=== PATIENT | male | born 1955 | race Caucasian/White ===

== ENCOUNTER 2022-02-27 23:55 | Emergency (ER) | payer MEDICARE, SELFPAY ==
--- NOTE | ~2022-02-27 | XR_ITS ---
EXAMINATION: XR CHEST CLINICAL INFORMATION: Shortness of breath COMPARISON: 11/25/2017 TECHNIQUE: Frontal view of the chest was obtained. FINDINGS: The lungs are hypoinflated with slight elevation of the right hemidiaphragm. No focal consolidation is seen bilaterally. No evidence of pneumothorax, pleural effusion, or pulmonary edema. The cardiomediastinal contour is unremarkable. Chronic appearing left rib deformities noted. XR/XR chest 1V IMPRESSION: Low lung volumes without acute findings.
--- NOTE | ~2022-02-27 | CT_ITS ---
EXAMINATION: CT HEAD WITHOUT CONTRAST CLINICAL INFORMATION: Fall COMPARISON: 11/25/2017 TECHNIQUE: Contiguous axial imaging was performed from the skull base to vertex without intravenous administration of contrast. This CT examination was performed using dose optimization techniques as appropriate, variously including the following: *Automated exposure control *Adjustment of mA and/or kV according to patient size (this includes techniques or standardized protocols for targeted exams where dose is matched to indication/reason for exam; i.e. extremities or head) *Use of iterative reconstruction technique DLP: 918 mGy-cm FINDINGS: There is no evidence of acute intracranial hemorrhage or territorial infarction. No abnormal mass-effect or midline shift is seen. Daugherty to white matter differentiation is well preserved. No extra-axial fluid collections are identified. The ventricles are normal in size. There is mild periventricular white matter hypoattenuation consistent with chronic small vessel ischemic disease. Mild volume loss is noted. 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 The osseous structures and soft tissues are normal. There is mucosal thickening of the ethmoid air cells and bilateral maxillary sinuses. The mastoid air cells are well-aerated. CT/CT head/brain wo IV con IMPRESSION: No acute intracranial pathology. Chronic appearing changes as noted above.
[2022-02-28] VITALS (8 sets, daily range): BP systolic 102–180; BP diastolic 52–124; PULSE 76–110; RESP 15–20; TEMP 36.5–37.2; O2SAT 90–98; BMI 33.9
--- NOTE | 2022-02-28 | ECG_ITS ---
Test Reason : PAST OUT Blood Pressure : / mmHG Vent. Rate : 084 BPM Atrial Rate : 084 BPM P-R Int : 178 ms QRS Dur : 114 ms QT Int : 384 ms P-R-T Axes : 041 -03 116 degrees QTc Int : 453 ms Sinus rhythm with frequent , and consecutive Premature ventricular complexes ST & T wave abnormality, consider lateral ischemia Abnormal ECG When compared with ECG of 25-NOV-2017 20:40, Premature ventricular complexes are now Present Heart rate has increased Referred By: Generic ED Physician Electronically Signed By:SIMI MACIEL MD
[2022-02-28 00:40] LABS: MANUAL DIFF FLAG NO
[2022-02-28 00:41] LABS: Hematocrit 46.9 % (42.0-52.0); Mean Corpuscular Hemoglobin 30.3 pg (27.0-33.0); Mean Corpuscular Volume 94.7 fL (80.0-98.0); Red Blood Count 4.95 X10*6/uL (4.60-5.80); Red Cell Distribution Width 13.5 % (11.0-16.0); White Blood Count 10.1 X10*3/uL (4.8-10.8)
[2022-02-28 00:54] LABS: Basophils Absolute Auto 0.1 X10*3/uL (0.0-0.2); Basophils Percent Auto 0.7 % (0-2); Eosinophils Absolute Auto 0.4 X10*3/uL (0.0-0.4); Imm Gran Abs Auto 0.06 X10*3/uL (0.00-0.03); Imm Gran Pct Auto 0.6 % (0.0-0.4); Lymphocytes Absolute Auto 2.9 X10*3/uL (1.2-4.9); Lymphocytes Percent Auto 28.8 % (20-40); Monocytes Absolute Auto 1.2 X10*3/uL (0.1-1.2); Monocytes Percent Auto 11.6 % (2-11); Neutrophils Absolute Auto 5.5 x10*3/uL (2.0-8.3); Neutrophils Percent Auto 54.3 % (45-73); Platelet Count 265 X10*3/uL (160-400)
[2022-02-28 01:01] LABS: Alanine Aminotransferase 38 U/L (0-40); Albumin Level 4.1 g/dL (3.5-5.0); Alkaline Phosphatase 68 U/L (39-117); Anion Gap 19 (12-20); Aspartate Amino Transferase 22 U/L (5-37); Bilirubin Total 0.4 mg/dL (0.0-1.0); Blood Urea Nitrogen 20 mg/dL (9-16); Carbon Dioxide 24 mmol/L (22-29); Chloride 99 mmol/L (96-108); Creatinine Clr Calc Pharmacy 64.2; Estimated Glomerular Filt Rate 50; Glucose Random 176 mg/dL (60-115); Sodium 138 mmol/L (135-145); Total Protein 7.6 g/dL (6.5-8.0)
[2022-02-28 01:07] LABS: Troponin-I High Sensitivity 12.5 ng/L (<3.5-35.0)
--- NOTE | 2022-02-28 01:11 | ED_ITS ---
HPI - General Adult General Chief complaint: Syncope Stated complaint: ETOH,DRUG USE, SYNCOPE Time Seen by Provider: 02/28/22 00:41 Source: patient Mode of arrival: EMS History of Present Illness HPI narrative: 67-year-old male who is brought in by EMS from a local bar after he ?passed out?. Patient states that he had 7-8 bud Lights and 4 shots as well as smoking marijuana. He otherwise denies any other heroin/cocaine use. Related Data Allergies Allergy/AdvReac Type Severity Reaction Status Date / Time No Known Allergies Allergy Unverified 01/11/20 15:05 [No Known Allergies*] Review of Systems Review of Systems: Pertinent positives and negatives as stated in HPI 10 point review of systems is otherwise negative. PMFSH Past Medical History Source: nursing notes reviewed Physical Exam ED Vital Signs: Vital Signs - 24 hr 02/28/22 00:28 Temperature 98.0 F Pulse Rate 84 Respiratory Rate 16 Blood Pressure 102/52 L Pulse Oximetry 91 L Oxygen Delivery Method Nasal Cannula Oxygen Flow Rate 2 BMI result Body Mass Index 33.9 VITAL SIGNS: Reviewed. GENERAL: Elevated BMI, Well developed, well nourished, in no acute distress. HEAD: Normocephalic/atraumatic EYES: PERRLA, EOMI EARS: Ext canals without abnormality OROPHARYNX: no oral lesions noted, posterior pharynx clear LUNGS: Normal breath sounds. No adventitious sounds or accessory muscle use. SpO2<95> on 2 L of nasal cannula CARDIOVASCULAR: Regular rate and rhythm without noted murmurs, no JVD or lower extremity edema. ABDOMEN: Soft, non-tender, non-distended with bowel sounds. MUSCULOSKELETAL: No tenderness, deformities, or effusions noted on gross inspection. EXTREMITIES: No cyanosis, clubbing or edema. SKIN: Inspection of the skin reveals no rashes NEUROLOGIC: Drowsy but easily aroused and oriented x 3. Strength and sensation to light touch were grossly intact x 4. Course Course Course Narrative: 67-year-old male with polysubstance use and appears to be under the influence, lives at home by himself. Will obtain basic labs provide supplemental oxygen at this time for level of drowsiness and observe until clinically sober. Review of all investigations demonstrates an ARIANNE and in the presence of mild hyperkalemia suspect this may be chronic at baseline but will give 1 L of IV fluids. Signed out to Dr Rios - f/u BNP,CXR, BAL - MTF Reevaluation(s) Reevaluation #1: Patient placed in physician observation because the patient needed more time to become sober. At the time observation was started the patient's vital signs were stable, patient is drowsy but easily aroused and oriented, neuro: Nonfocal, CV RRR, lungs clear Time: 01:16 Medical Decision Making Lab Data Result diagrams: 02/28/22 00:36 02/28/22 00:36 Labs: Lab Results 02/28/22 02/28/22 02/28/22 Range/Units 00:36 00:36 00:36 WBC 10.1 (4.8-10.8) X10*3/uL RBC 4.95 (4.60-5.80) X10*6/uL Hgb 15.0 (14.0-18.0) g/dl Hct 46.9 (42.0-52.0) % MCV 94.7 (80.0-98.0) fL MCH 30.3 (27.0-33.0) pg MCHC 32.0 (31.0-36.0) g/dl RDW 13.5 (11.0-16.0) % Plt Count 265 (160-400) X10*3/uL MPV 11.0 (9.4-12.4) fL Immature Gran % (Auto) 0.6 H (0.0-0.4) % Neut % (Auto) 54.3 (45-73) % Lymph % (Auto) 28.8 (20-40) % [place] % (Auto) 11.6 H (2-11) % Eos % (Auto) 4.0 (0-4) % Baso % (Auto) 0.7 (0-2) % Lymph # (Auto) 2.9 (1.2-4.9) X10*3/uL [place] # (Auto) 1.2 (0.1-1.2) X10*3/uL Eos # (Auto) 0.4 (0.0-0.4) X10*3/uL Baso # (Auto) 0.1 (0.0-0.2) X10*3/uL Abs Immat Gran (auto) 0.06 H (0.00-0.03) X10*3/uL Absolute Neuts (auto) 5.5 (2.0-8.3) x10*3/uL Absolute Nucleated RBC 0.000 (0.0-0.012) X10*3/uL Nucleated RBC % (auto) 0.0 (0.0-0.2) /100WBC Sodium 138 (135-145) mmol/L Potassium 4.0 (3.3-5.1) mmol/L Chloride 99 (96-108) mmol/L Carbon Dioxide 24 (22-29) mmol/L Anion Gap 19 (12-20) BUN 20 H (9-16) mg/dL Creatinine 1.41 H (0.5-1.4) mg/dL Estim Creat Clear Calc 64.2 Estimated GFR 50 Random Glucose 176 H (60-115) mg/dL Calcium 9.0 (8.4-10.2) mg/dL Total Bilirubin 0.4 (0.0-1.0) mg/dL AST 22 (5-37) U/L ALT 38 (0-40) U/L Alkaline Phosphatase 68 (39-117) U/L Troponin I High Sens 12.5 (<3.5-35.0) ng/L Total Protein 7.6 (6.5-8.0) g/dL Albumin 4.1 (3.5-5.0) g/dL Discharge Plan Discharge Clinical Impression: Alcohol intoxication, Fall, Marijuana use Patient Disposition: Still a Patient
[2022-02-28] MEDS: 0.9 % Sodium Chloride 1,000 ML 999 ML IV (01:44)
[2022-02-28 01:47] LABS: Ethanol 109 mg/dL
[2022-02-28 01:55] LABS: B Type Natriuretic Peptide 20 pg/mL (<100)
--- NOTE | 2022-02-28 11:50 | PC.NURSE ---
Liza aware of patients BP
== END 2022-02-28 12:13 | disposition home or self-care (01) ==
PROVIDERS: Emergency Provider Student in an Organized Health Care Education/Training Program; PCP Family Medicine
DX: F10.920 Alcohol use, unspecified with intoxication, uncomplicated (principal); Y90.5 Blood alcohol level of 100-119 mg/100 ml; F12.90 Cannabis use, unspecified, uncomplicated; Z91.81 History of falling
CPT/HCPCS: 36415; 70450; 71045; 80053; 82077; 83880; 84484; 85025; 93005; 96360; 96361; 99284; 99285

== ENCOUNTER 2024-01-24 11:39 | Emergency (ER) | payer MEDICARE, SELFPAY ==
--- NOTE | ~2024-01-24 | CT_ITS ---
EXAMINATION: CT HEAD WITHOUT CONTRAST CLINICAL INFORMATION: Dizziness. Surgical. COMPARISON: February 28, 2022 TECHNIQUE: Contiguous axial imaging was performed from the skull base to vertex without intravenous administration of contrast. This CT examination was performed using dose optimization techniques as appropriate, variously including the following: *Automated exposure control *Adjustment of mA and/or kV according to patient size (this includes techniques or standardized protocols for targeted exams where dose is matched to indication/reason for exam; i.e. extremities or head) *Use of iterative reconstruction technique DLP: 834 mGy-cm FINDINGS: There is no evidence of acute intracranial hemorrhage or edematous territorial infarction. No mass effect or midline shift is seen. No extra-axial fluid collections are identified. No hydrocephalus. Proportional prominence of the ventricles and sulcal spaces is consistent with moderate volume loss. Confluent periventricular and deep white matter hypoattenuation is consistent with severe small vessel ischemic changes. The osseous structures and soft tissues are intact. Mucoperiosteal thickening of the ethmoid air cells. CT/CT head/brain wo IV con IMPRESSION: Advanced chronic small vessel ischemic disease. If clinical concern persists given the degree of underlying chronic changes, MRI should be considered for more sensitive evaluation. Electronically signed by: Gustavo Sun MD 01/24/2024 01:05 PM EDT
[2024-01-24 12:17] VITALS: BP 146/84; PULSE 80; RESP 16; TEMP 36.5; O2SAT 95; BMI 36.0
--- NOTE | 2024-01-24 12:17 | ED_ITS ---
HPI - General Adult General Chief complaint: Neuro Symptoms/Deficit Stated complaint: diabetic, Sugar low Time Seen by Provider: 01/24/24 20:05 Source: patient Mode of arrival: ambulatory Limitations: no limitations History of Present Illness ED Provider: carlos NICOLE narrative: Patient is diabetic been complaining of dizziness feeling for last 4 days started all of a sudden feels everything spinning associated with nausea no ringing in the ear no tremors no other weakness patient never had similar complaints in the past no upper respiratory symptoms no tinnitus Related Data Previous Rx's ?Medication ?Instructions ?Recorded meclizine 25 mg tablet 25 mg PO TID PRN dizziness #20 tabs 01/24/24 Allergies Allergy/AdvReac Type Severity Reaction Status Date / Time No Known Allergies Allergy Verified 01/24/24 12:18 [No Known Allergies*] Review of Systems 2 Review of Systems: Yes all other systems are reviewed and are negative [facility] Social History Social History Alcohol intake: former Smoked in Last 30 Days: No Use of substances other than those prescribed or required for medical reasons: No Substance Use Type: Marijuana Advance Directives: No Advance Directives Information Provided: No Physical Exam ED Vital Signs: Vital Signs - 24 hr 01/24/24 12:17 01/24/24 19:54 01/24/24 21:08 Temperature 97.7 F 98.0 F 98.0 F Pulse Rate 80 86 86 Respiratory Rate 16 22 H 22 H Blood Pressure 146/84 H 165/90 H 165/90 H Pulse Oximetry 95 95 95 Oxygen Delivery Method Room Air Room Air Room Air BMI result Body Mass Index 36.0 Appearance: Alert. Oriented X3. No acute distress. Eyes: PERRLA, No Nystagmus ENT: Pharynx normal. Oral Mucosa moist Neck: Normal inspection. Neck supple. CVS: Normal heart rate and rhythm. Pulses normal. Respiratory: No respiratory distress. Equal air entry bilateral, no wheezing/rales/rhonchi Abdomen: Soft and nontender. Bowel sounds are present, no mass palpable, no CVA tenderness Skin: Skin warm and dry. Normal skin color. Normal skin turgor. Extremities: No lower extremity edema. No calf tenderness Neuro: Oriented X 3. No motor deficit. No sensory deficit.No cerebellar signs , cranial nerves II-XII intact Course Course Course Narrative: josie MELGOZA is a rapid medical exam performed by Ilan Fry please refer to primary provider for complete H&P- 69 year old male with past medical history significant for diabetes, hypertension presents for evaluation of multiple complaints including increased weakness, slurred speech, difficulty walking for the last 4 days. The patient has no focal neurologic deficits in triage. Plan for basic labs, EKG, CT scan of the brain. Medications Administered Discontinued Medications Generic Name Dose Route Start Last Admin Trade Name Rodrigo PRN Reason Stop Dose Admin Meclizine HCl 50 mg 01/24/24 20:26 01/24/24 21:05 Meclizine Hcl 25 Mg Tablet PO 01/24/24 20:27 50 mg ONCE ONE Administration Medical Decision Making Medical Decision Making [facility] Narrative: Patient clinically with benign positional vertigo with sudden onset of vertiginous feeling with nausea no signs of central nervous system involvement ambulatory in steady gait no nystagmus no cerebellar signs CT scan of the head was negative for acute patient felt better after meclizine will discharge patient home on meclizine advised to follow with his PCP Differential Diagnosis Differential Diagnoses: The differential diagnosis associated with the presentation includes CVA/TIA/benign positional vertigo Lab Data [facility] Lab Attestation statement: I reviewed the patient's lab results. 01/24/24 12:29 01/24/24 12:29 Labs: Lab Results 01/24/24 01/24/24 01/24/24 Range/Units 12:10 12:29 20:39 WBC 10.5 (4.8-10.8) X10*3/uL RBC 4.73 (4.60-5.80) X10*6/uL Hgb 14.5 (14.0-18.0) g/dl Hct 42.9 (42.0-52.0) % MCV 90.7 (80.0-98.0) fL MCH 30.7 (27.0-33.0) pg MCHC 33.8 (31.0-36.0) g/dl RDW 13.1 (11.0-16.0) % Plt Count 262 (160-400) X10*3/uL MPV 10.5 (9.4-12.4) fL Immature Gran % (Auto) 0.4 (0.0-0.4) % Neut % (Auto) 62.0 (45-73) % Lymph % (Auto) 22.7 (20-40) % [place] % (Auto) 11.2 H (2-11) % Eos % (Auto) 3.1 (0-4) % Baso % (Auto) 0.6 (0-2) % Lymph # (Auto) 2.4 (1.2-4.9) X10*3/uL [place] # (Auto) 1.2 (0.1-1.2) X10*3/uL Eos # (Auto) 0.3 (0.0-0.4) X10*3/uL Baso # (Auto) 0.1 (0.0-0.2) X10*3/uL Abs Immat Gran (auto) 0.04 H (0.00-0.03) X10*3/uL Absolute Neuts (auto) 6.5 (2.0-8.3) x10*3/uL Absolute Nucleated RBC 0.000 (0.0-0.012) X10*3/uL Nucleated RBC % (auto) 0.0 (0.0-0.2) /100WBC PT 11.1 (10.9-12.4) SEC INR 1.0 (0.9-1.1) Sodium 141 (135-145) mmol/L Potassium 4.1 (3.3-5.1) mmol/L Chloride 106 (96-108) mmol/L Carbon Dioxide 26 (22-29) mmol/L Anion Gap 13 (12-20) BUN 21 H (9-16) mg/dL Creatinine 1.16 (0.5-1.4) mg/dL Estim Creat Clear Calc 76.0 Estimated GFR > 60 POC Glucose 159 H 106 (60-115) mg/dL Random Glucose 184 H (60-115) mg/dL Calcium 9.5 (8.4-10.2) mg/dL Total Bilirubin 0.5 (0.0-1.0) mg/dL AST 19 (5-37) U/L ALT 29 (0-40) U/L Alkaline Phosphatase 73 (39-117) U/L Troponin I High Sens 8.8 (<3.5-35.0) ng/L B-Natriuretic Peptide 44 (<100) pg/mL Total Protein 7.6 (6.5-8.0) g/dL Albumin 3.9 (3.5-5.0) g/dL Lipase 12 (8-78) U/L Ethyl Alcohol < 10 mg/dL Independent Interpretation I performed an independent interpretation of an: CT Scan Radiology Impression Discussion of test interpretation with radiology: I have reviewed the radiologist's reading. Radiologist Impression: CT/CT head/brain wo IV con IMPRESSION: Advanced chronic small vessel ischemic disease. If clinical concern persists given the degree of underlying chronic changes, MRI should be considered for more sensitive evaluation. Electronically signed by: Gustavo Sun MD Discharge Plan Discharge Clinical Impression: Benign paroxysmal positional vertigo Patient Disposition: Home, Self-Care Instructions: Benign Paroxysmal Positional Vertigo (ED) Additional Instructions: Care and cautions as advised Take medication for dizziness as prescribed Follow with your PCP if not better Your CT scan is negative for stroke Prescriptions: New meclizine 25 mg tablet 25 mg PO TID PRN (Reason: dizziness) Qty: 20 0RF Interventions: ED Discharge Assessment Last Done: 01/24/24 21:08 Discharge Date/Time: 01/24/24 21:08 Print Language: Hebrew
--- NOTE | 2024-01-24 12:18 | ECG_ITS ---
Test Reason : WEAKNESS Blood Pressure : / mmHG Vent. Rate : 077 BPM Atrial Rate : 077 BPM P-R Int : 166 ms QRS Dur : 118 ms QT Int : 404 ms P-R-T Axes : 001 -08 101 degrees QTc Int : 457 ms Normal sinus rhythm Non-specific intra-ventricular conduction delay Nonspecific ST and T wave abnormality Abnormal ECG When compared with ECG of 28-FEB-2022 00:18, Premature ventricular complexes are no longer Present Nonspecific T wave abnormality has replaced inverted T waves in Lateral leads Referred By: Mitch Fry Electronically Signed By:RADHA DAVENPORT
[2024-01-24 12:34] LABS: MANUAL DIFF FLAG NO
[2024-01-24 12:37] LABS: Basophils Absolute Auto 0.1 X10*3/uL (0.0-0.2); Basophils Percent Auto 0.6 % (0-2); Eosinophils Absolute Auto 0.3 X10*3/uL (0.0-0.4); Eosinophils Percent Auto 3.1 % (0-4); Hematocrit 42.9 % (42.0-52.0); Hemoglobin 14.5 g/dl (14.0-18.0); Imm Gran Abs Auto 0.04 X10*3/uL (0.00-0.03); Imm Gran Pct Auto 0.4 % (0.0-0.4); Lymphocytes Absolute Auto 2.4 X10*3/uL (1.2-4.9); Lymphocytes Percent Auto 22.7 % (20-40); Mean Corpuscular HGB Conc 33.8 g/dl (31.0-36.0); Mean Corpuscular Hemoglobin 30.7 pg (27.0-33.0); Mean Corpuscular Volume 90.7 fL (80.0-98.0); Mean Platelet Volume 10.5 fL (9.4-12.4); Monocytes Absolute Auto 1.2 X10*3/uL (0.1-1.2); Monocytes Percent Auto 11.2 % (2-11); Neutrophils Absolute Auto 6.5 x10*3/uL (2.0-8.3); Platelet Count 262 X10*3/uL (160-400); Red Blood Count 4.73 X10*6/uL (4.60-5.80); Red Cell Distribution Width 13.1 % (11.0-16.0); White Blood Count 10.5 X10*3/uL (4.8-10.8)
[2024-01-24 12:45] LABS: Glucose, Whole Blood 159 mg/dL (60-115)
[2024-01-24 12:45] LABS: Prothrombin Time 11.1 SEC (10.9-12.4)
[2024-01-24 12:51] LABS: Alanine Aminotransferase 29 U/L (0-40); Albumin Level 3.9 g/dL (3.5-5.0); Alkaline Phosphatase 73 U/L (39-117); Anion Gap 13 (12-20); Aspartate Amino Transferase 19 U/L (5-37); Bilirubin Total 0.5 mg/dL (0.0-1.0); Blood Urea Nitrogen 21 mg/dL (9-16); Calcium 9.5 mg/dL (8.4-10.2); Carbon Dioxide 26 mmol/L (22-29); Chloride 106 mmol/L (96-108); Estimated Glomerular Filt Rate > 60; Ethanol < 10 mg/dL; Glucose Random 184 mg/dL (60-115); Lipase 12 U/L (8-78); Potassium 4.1 mmol/L (3.3-5.1); Sodium 141 mmol/L (135-145); Total Protein 7.6 g/dL (6.5-8.0)
[2024-01-24 12:56] LABS: B Type Natriuretic Peptide 44 pg/mL (<100)
[2024-01-24 12:57] LABS: Troponin-I High Sensitivity 8.8 ng/L (<3.5-35.0)
[2024-01-24 19:54] VITALS: BP 165/90; PULSE 86; RESP 22; TEMP 36.7; O2SAT 95
[2024-01-24] MEDS: Meclizine HCl 25 MG TABLET 50 MG PO (21:05)
[2024-01-24 21:08] VITALS: BP 165/90; PULSE 86; RESP 22; TEMP 36.7; O2SAT 95
[2024-01-24 21:15] LABS: Glucose, Whole Blood 106 mg/dL (60-115)
== END 2024-01-24 21:08 | disposition home or self-care (01) ==
PROVIDERS: Physician Assistant; Emergency Provider Internal Medicine; PCP Family Medicine
DX: H81.10 Benign paroxysmal vertigo, unspecified ear (principal); R53.1 Weakness; R47.81 Slurred speech; R26.2 Difficulty in walking, not elsewhere classified; E11.9 Type 2 diabetes mellitus without complications; I10 Essential (primary) hypertension; I67.82 Cerebral ischemia; F12.90 Cannabis use, unspecified, uncomplicated
CPT/HCPCS: 36415; 70450; 80053; 80307; 82947; 83690; 83880; 84484; 85025; 85610; 93005; 99284; 99285

== ENCOUNTER 2024-03-22 22:20 | Inpatient (IN) | payer MEDICARE, SELFPAY ==
--- NOTE | 2024-03-22 | ECG_ITS ---
Test Reason : FALL Blood Pressure : / mmHG Vent. Rate : 105 BPM Atrial Rate : 105 BPM P-R Int : 166 ms QRS Dur : 096 ms QT Int : 368 ms P-R-T Axes : 074 000 075 degrees QTc Int : 486 ms Sinus tachycardia Nonspecific ST abnormality Abnormal ECG When compared with ECG of 24-JAN-2024 12:15, T wave amplitude has increased in Inferior leads Nonspecific T wave abnormality, improved in Anterolateral leads Referred By: Gerald Ashley Electronically Signed By:APURVA ELAINE
--- NOTE | ~2024-03-22 | XR_ITS ---
EXAMINATION: XR CHEST CLINICAL INFORMATION: weakness COMPARISON: 02/28/2022 TECHNIQUE: Frontal view of the chest was obtained. FINDINGS: There is been no interval change since the prior study. Again seen is a mildly elevated right hemidiaphragm and healing fractures of left-sided posterior ribs. No acute infiltrates, pleural effusions or suspicious lung masses are seen. XR/XR chest 1V IMPRESSION: No acute intrathoracic disease. Healing left-sided rib fractures. Electronically signed by: Dexter Ibrahim MD 03/23/2024 12:24 AM JANELLE LIN
[2024-03-22 22:21] VITALS: BP 120/67; PULSE 110; O2SAT 95
[2024-03-22 22:27] VITALS: BP 132/76; PULSE 104; RESP 22; TEMP 36.7; O2SAT 93; BMI 34.9
[2024-03-22 22:43] LABS: Glucose, Whole Blood 154 mg/dL (60-115)
[2024-03-22] MEDS: 0.9 % Sodium Chloride 1,000 ML 999 ML IV (22:47)
[2024-03-22 23:05] LABS: Basophils Absolute Auto 0.1 X10*3/uL (0.0-0.2); Basophils Percent Auto 0.4 % (0-2); Eosinophils Percent Auto 0.2 % (0-4); Hematocrit 45.9 % (42.0-52.0); Hemoglobin 15.7 g/dl (14.0-18.0); Imm Gran Pct Auto 0.5 % (0.0-0.4); Lymphocytes Absolute Auto 2.3 X10*3/uL (1.2-4.9); Lymphocytes Percent Auto 11.6 % (20-40); Mean Corpuscular HGB Conc 34.2 g/dl (31.0-36.0); Mean Corpuscular Hemoglobin 30.4 pg (27.0-33.0); Mean Platelet Volume 10.9 fL (9.4-12.4); Monocytes Percent Auto 10.2 % (2-11); Neutrophils Absolute Auto 15.3 x10*3/uL (2.0-8.3); Neutrophils Percent Auto 77.1 % (45-73); Platelet Count 304 X10*3/uL (160-400); Red Blood Count 5.16 X10*6/uL (4.60-5.80); Red Cell Distribution Width 13.2 % (11.0-16.0); SCAN SMEAR FLAG 1; White Blood Count 19.7 X10*3/uL (4.8-10.8)
[2024-03-22 23:10] LABS: MANUAL DIFF FLAG SCAN; Prothrombin Time 12.1 SEC (10.9-12.4)
--- NOTE | 2024-03-22 23:10 | MHC.EDTECH ---
Patient BIBA,changed into hospital attire,vitals taken,continuous rectal probe placed,temp is 98.6, pt tolerated well,EKG taken per order and signed by provider ,1st set of blood cultures,labs,and Sars obtained and sent to lab,will hold on the 2nd set at this time,pt is cold and a difficult stick,multiple staff attempted provider and RN aware. Patient has multiple abrasions to both knees,rt foot and left elbow, warm blankets applied to pt,call dickson in reach
--- NOTE | 2024-03-22 23:14 | PC.NURSE ---
pt biba from home, a&ox3, respirations even and unlabored. pt reports leaving his house to go get batterys when he fell down outside. pt reports he had been outside for 1 hour when his neighbor found him. pt reports he attempted to get up on his own but was unable. pt denies pain at this time. ems reports pt had temp scan of 90.1. on arrival, pt rectal, 98. pt denies pain at this time. c collar removed by provider. 22G placed in left hand, 20G placed in left ac by ems.per provider okay to hold on second set of cultures at this time. iv fluids administered at this time.
[2024-03-22 23:20] VITALS: BP 100/65; PULSE 100; RESP 16; TEMP 36.9; O2SAT 95
[2024-03-22 23:21] LABS: Alanine Aminotransferase 50 U/L (0-40); Albumin Level 4.1 g/dL (3.5-5.0); Alkaline Phosphatase 76 U/L (39-117); Anion Gap 23 (12-20); Aspartate Amino Transferase 66 U/L (5-37); Bilirubin Total 0.8 mg/dL (0.0-1.0); Blood Urea Nitrogen 47 mg/dL (9-16); Calcium 9.7 mg/dL (8.4-10.2); Carbon Dioxide 22 mmol/L (22-29); Chloride 101 mmol/L (96-108); Creatinine Clr Calc Pharmacy 41.7; Estimated Glomerular Filt Rate 32; Glucose Random 177 mg/dL (60-115); Magnesium 1.8 mg/dL (1.6-2.6); Potassium 4.7 mmol/L (3.3-5.1); Sodium 141 mmol/L (135-145); Total Protein 7.8 g/dL (6.5-8.0)
--- NOTE | 2024-03-22 23:21 | PC.NURSE ---
pt noted to have skin tares to bilateral elbows and knees, all of them cleaned and covered at this time.
[2024-03-22 23:23] LABS: Lactic Acid 3.8 mmol/L (0.5-2.0)
[2024-03-22 23:26] LABS: SLIDE REVIEW VERIFIED
--- NOTE | 2024-03-22 23:26 | ED.GENADULT ---
HPI - General Adult General Chief complaint: Fall Stated complaint: core temp 90.7, fall outside, found 1hr later Time Seen by Provider: 03/22/24 22:31 Source: patient and EMS Mode of arrival: EMS Limitations: no limitations History of Present Illness ED Provider: carlos NICOLE narrative: Patient is 69 years old lives alone apparently was feeling weak for last few days not eating much having loose bowels for last 3- 4 days patient did not eat much and did not take his insulin for 3 -4 days . Today patient went out to get the batteries for his remote ,when came home felt very weak when get came out of the car slumped down to the driveway and laid there for about an hour till neighbor came and called the ambulance patient has tried to get a but was feeling very weak has multiple abrasions on bilateral knees and left elbow no head injury no neck patient denied any fever or chills no urinary symptoms no abdominal pain no nausea no vomiting no chest pain no shortness of breath Related Data Previous Rx's ?Medication ?Instructions ?Recorded meclizine 25 mg tablet 25 mg PO TID PRN dizziness #20 tabs 01/24/24 Allergies Allergy/AdvReac Type Severity Reaction Status Date / Time No Known Allergies Allergy Verified 03/22/24 22:31 [No Known Allergies*] Review of Systems Review of Systems: Yes all other systems are reviewed and are negative [facility] Past Medical History Medical History (Updated 03/23/24 @ 00:21 by Gerald Ashley MD) Diabetes mellitus Social History Social History Alcohol intake: former Smoked in Last 30 Days: No Use of substances other than those prescribed or required for medical reasons: No Substance Use Type: Marijuana Advance Directives: No Advance Directives Information Provided: Yes Physical Exam ED Vital Signs: Vital Signs - 24 hr 03/22/24 22:27 03/22/24 23:20 03/23/24 00:03 Temperature 98.0 F 98.4 F 98.6 F Pulse Rate 104 H 100 97 Respiratory Rate 22 H 16 16 Blood Pressure 132/76 100/65 121/69 Pulse Oximetry 93 95 96 Oxygen Delivery Method Room Air Room Air Room Air 03/23/24 00:09 Temperature 98.6 F Pulse Rate 102 H Respiratory Rate 20 Blood Pressure 120/65 Pulse Oximetry 95 Oxygen Delivery Method Room Air BMI result Body Mass Index 34.9 Appearance: Alert. Oriented X3. No acute distress. Eyes: PERRLA, No Nystagmus ENT: Pharynx normal. Oral Mucosa very dry atraumatic normocephalic Neck: Normal inspection. Neck supple. No midline tenderness CVS: Normal heart rate and rhythm. Pulses normal. Respiratory: No respiratory distress. Equal air entry bilateral, no wheezing/rales/rhonchi Abdomen: Soft and nontender. Bowel sounds are present, no mass palpable, no CVA tenderness Skin: Skin warm and dry. Normal skin color. Normal skin turgor. abrasion bilateral knee and toes Extremities: No lower extremity edema. No calf tenderness Neuro: Oriented X 3. No motor deficit. No sensory deficit.No cerebellar signs , cranial nerves II-XII intact Medications Administered Generic Name Dose Route Start Last Admin Trade Name Freq PRN Reason Stop Dose Admin Lactated Ringer's 1,000 mls @ 100 mls/hr 03/22/24 23:45 03/23/24 00:11 Lr IVCONT 100 mls/hr .Q10H LINDY Administration Sodium Chloride 3 ml 03/23/24 00:00 03/23/24 00:14 0.9 % Sodium Chloride Flush 3 Ml Syringe IVFLUSH Not Given QSHIFT LINDY Discontinued Medications Generic Name Dose Route Start Last Admin Trade Name Freq PRN Reason Stop Dose Admin Ceftriaxone Sodium 2 gm 03/22/24 23:23 03/22/24 23:38 Ceftriaxone Sodium 2 Gm Vial IVPUSH 03/22/24 23:24 2 gm ONCE ONE Administration Sodium Chloride 1,000 mls @ 999 mls/hr 03/22/24 22:36 03/23/24 00:01 Ns IV 03/22/24 23:36 Infused .Q1H1M ONE Infusion Medical Decision Making Medical Decision Making [facility] Narrative: Patient with increased weakness diabetes leukocytosis tachycardic with UA positive for UTI meeting the criteria for sepsis started on IV fluids IV Rocephin was given patient's blood pressure been stable alert awake taking p.o. fluids Differential Diagnosis Differential Diagnoses: The differential diagnosis associated with the presentation includes Bacteremia/UTI Admission/Observation Consideration of admission/observation: Escalation of care including admission/observation considered Consult Healthcare Provider Management of the patient was discussed with: Hospitalist Lab Data [facility] Lab Attestation statement: I reviewed the patient's lab results. 03/22/24 22:58 03/22/24 22:58 Labs: Lab Results 03/22/24 03/22/24 03/22/24 Range/Units 22:36 22:58 22:59 WBC 19.7 H (4.8-10.8) X10*3/uL RBC 5.16 (4.60-5.80) X10*6/uL Hgb 15.7 (14.0-18.0) g/dl Hct 45.9 (42.0-52.0) % MCV 89.0 (80.0-98.0) fL MCH 30.4 (27.0-33.0) pg MCHC 34.2 (31.0-36.0) g/dl RDW 13.2 (11.0-16.0) % Plt Count 304 (160-400) X10*3/uL MPV 10.9 (9.4-12.4) fL Immature Gran % (Auto) 0.5 H (0.0-0.4) % Neut % (Auto) 77.1 H (45-73) % Lymph % (Auto) 11.6 L (20-40) % [place] % (Auto) 10.2 (2-11) % Eos % (Auto) 0.2 (0-4) % Baso % (Auto) 0.4 (0-2) % Lymph # (Auto) 2.3 (1.2-4.9) X10*3/uL [place] # (Auto) 2.0 H (0.1-1.2) X10*3/uL Eos # (Auto) 0.0 (0.0-0.4) X10*3/uL Baso # (Auto) 0.1 (0.0-0.2) X10*3/uL Abs Immat Gran (auto) 0.10 H (0.00-0.03) X10*3/uL Absolute Neuts (auto) 15.3 H (2.0-8.3) x10*3/uL Absolute Nucleated RBC 0.000 (0.0-0.012) X10*3/uL Nucleated RBC % (auto) 0.0 (0.0-0.2) /100WBC Smear Tech's Comments VERIFIED PT 12.1 (10.9-12.4) SEC INR 1.0 (0.9-1.1) Sodium 141 (135-145) mmol/L Potassium 4.7 (3.3-5.1) mmol/L Chloride 101 (96-108) mmol/L Carbon Dioxide 22 (22-29) mmol/L Anion Gap 23 H (12-20) BUN 47 H (9-16) mg/dL Creatinine 2.08 H (0.5-1.4) mg/dL Estim Creat Clear Calc 41.7 Estimated GFR 32 POC Glucose 154 H (60-115) mg/dL Random Glucose 177 H (60-115) mg/dL Lactic Acid 3.8 H* (0.5-2.0) mmol/L Calcium 9.7 (8.4-10.2) mg/dL Magnesium 1.8 (1.6-2.6) mg/dL Total Bilirubin 0.8 (0.0-1.0) mg/dL AST 66 H (5-37) U/L ALT 50 H (0-40) U/L Alkaline Phosphatase 76 (39-117) U/L Total Protein 7.8 (6.5-8.0) g/dL Albumin 4.1 (3.5-5.0) g/dL Urine Color Urine Appearance Urine pH (5.0-9.0) Ur Specific [place] (1.005-1.025) Urine Protein (Neg-Trace) mg/dL Urine Glucose (UA) (Negative) mg/dL Urine Ketones (Negative) mg/dL Urine Blood (Negative) Urine Nitrite (Negative) Ur Leukocyte Esterase (Negative) Urine RBC (0-2) /HPF Urine WBC (0-5) /HPF Ur Squamous Epith Cells (0-2) /HPF Urine Bacteria (None Seen) Hyaline Casts (0-2) /LPF Influenza Type A (PCR) NEGATIVE (Negative) Influenza Type B (PCR) NEGATIVE (Negative) RSV RNA Qual (PCR) NEGATIVE (Negative) SARS-CoV-2 RNA (RT-PCR) NEGATIVE (Negative) 03/22/24 Range/Units 23:49 WBC (4.8-10.8) X10*3/uL RBC (4.60-5.80) X10*6/uL Hgb (14.0-18.0) g/dl Hct (42.0-52.0) % MCV (80.0-98.0) fL MCH (27.0-33.0) pg MCHC (31.0-36.0) g/dl RDW (11.0-16.0) % Plt Count (160-400) X10*3/uL MPV (9.4-12.4) fL Immature Gran % (Auto) (0.0-0.4) % Neut % (Auto) (45-73) % Lymph % (Auto) (20-40) % [place]ha % (Auto) (2-11) % Eos % (Auto) (0-4) % Baso % (Auto) (0-2) % Lymph # (Auto) (1.2-4.9) X10*3/uL [place] # (Auto) (0.1-1.2) X10*3/uL Eos # (Auto) (0.0-0.4) X10*3/uL Baso # (Auto) (0.0-0.2) X10*3/uL Abs Immat Gran (auto) (0.00-0.03) X10*3/uL Absolute Neuts (auto) (2.0-8.3) x10*3/uL Absolute Nucleated RBC (0.0-0.012) X10*3/uL Nucleated RBC % (auto) (0.0-0.2) /100WBC Smear Tech's Comments PT (10.9-12.4) SEC INR (0.9-1.1) Sodium (135-145) mmol/L Potassium (3.3-5.1) mmol/L Chloride (96-108) mmol/L Carbon Dioxide (22-29) mmol/L Anion Gap (12-20) BUN (9-16) mg/dL Creatinine (0.5-1.4) mg/dL Estim Creat Clear Calc Estimated GFR POC Glucose (60-115) mg/dL Random Glucose (60-115) mg/dL Lactic Acid (0.5-2.0) mmol/L Calcium (8.4-10.2) mg/dL Magnesium (1.6-2.6) mg/dL Total Bilirubin (0.0-1.0) mg/dL AST (5-37) U/L ALT (0-40) U/L Alkaline Phosphatase (39-117) U/L Total Protein (6.5-8.0) g/dL Albumin (3.5-5.0) g/dL Urine Color Dark Yellow Urine Appearance Clear Urine pH 5.0 (5.0-9.0) Ur Specific [place] 1.020 (1.005-1.025) Urine Protein 100 (2+) H (Neg-Trace) mg/dL Urine Glucose (UA) 100 H (Negative) mg/dL Urine Ketones Trace (Negative) mg/dL Urine Blood Large (3+) H (Negative) Urine Nitrite Positive H (Negative) Ur Leukocyte Esterase Small (1+) H (Negative) Urine RBC 6-10 H (0-2) /HPF Urine WBC 11-20 H (0-5) /HPF Ur Squamous Epith Cells 0-2 (0-2) /HPF Urine Bacteria None Seen (None Seen) Hyaline Casts 6-10 (0-2) /LPF Influenza Type A (PCR) (Negative) Influenza Type B (PCR) (Negative) RSV RNA Qual (PCR) (Negative) SARS-CoV-2 RNA (RT-PCR) (Negative) Independent Interpretation I performed an independent interpretation of an: EKG Interpretation: Sinus tachycardia with heart rate 105 beats per minute normal interval normal axis no acute STT wave changes no acute ischemia Discharge Plan Discharge Clinical Impression: Acute UTI, SIRS (systemic inflammatory response syndrome), Weakness Patient Disposition: Admitted As Inpatient Print Language: Armenian
--- NOTE | 2024-03-22 23:33 | PC.NURSE ---
this RN took critical lactic 3.8 at this time, aware. sepsis alert called at 2017.
[2024-03-22] MEDS: cefTRIAXone sodium 2 GM VIAL IVPUSH (23:38)
[2024-03-22 23:42] LABS: Influenza A PCR NEGATIVE (Negative); Influenza B PCR NEGATIVE (Negative); Resp Syncy Virus RNA Qual PCR NEGATIVE (Negative); SARS COV2 PCR INHOUSE NEGATIVE (Negative)
--- NOTE | 2024-03-22 23:57 | PC.NURSE ---
pt straight cath at this time, 300ml dark yellow urine voided. pt tolerated well. urine sample sent to lab.
[2024-03-22 23:58] LABS: Appearance Urine Clear; Color Urine Dark Yellow; Glucose Urine UA 100 mg/dL (Negative); Leukocyte Esterase Urine Small (1+) (Negative); Nitrite Urine Positive (Negative); UMIC TRIGGER UACC YES; Urine Blood Large (3+) (Negative); Urine Ketones Trace mg/dL (Negative); Urine Protein 100 (2+) mg/dL (Neg-Trace)
[2024-03-23] VITALS (10 sets, daily range): BP systolic 101–150; BP diastolic 64–73; PULSE 65–103; RESP 16–20; TEMP 36.4–37; O2SAT 93–98
--- NOTE | 2024-03-23 00:02 | PM.IMHP ---
History of Present Illness Date of Service: 03/22/24 Chief Complaint: Fall, not feeling well A 69-year-old male with a history of diabetes mellitus (DM), hypertension (HTN), and liver disease was found alone in [place] after slipping and falling while walking to a store to buy batteries for his remote. He reports difficulty getting up and was exposed to cold temperatures for at least one hour. He denies head, neck, or hip injuries but states he has been feeling weak due to diarrhea over the past few days. Additionally, he has not taken his insulin for at least six days. Initial evaluation revealed: WBC: 19K Lactic acid: 3.8 mmol/L UA: Positive for UTI Creatinine: 2.08 mg/dL (baseline on 01/23: 1.16 mg/dL) CXR: No acute findings on review Temperature: Afebrile The patient has been treated with IV ceftriaxone. Review of Systems Review of Systems: Gen: no fever Resp: no sob, no cough CV: no chest, no QUIJANO, no leg edema GI: No n/v, no abd pain : no dysuria, no hematur MSK: no neck pain, no hip pain Neuro: No confusion Yes all other systems are reviewed and are negative [facility] Medical History (Updated 03/23/24 @ 00:21 by Gerald Ashley MD) Diabetes mellitus Social History Alcohol intake: former Substance Use Type: Marijuana Meds Allergies Allergy/AdvReac Type Severity Reaction Status Date / Time No Known Allergies Allergy Verified 03/22/24 22:31 [No Known Allergies*] Active Medications: Current Medications Acetaminophen (Acetaminophen 325 Mg Tablet) 650 mg PO Q6H PRN PRN Reason: Pain, Mild (Pain Scale 1-3), fever or headache Calcium Carbonate (Calcium Carbonate 750 Mg Tab.Chew) 750 mg PO Q4H PRN PRN Reason: Heartburn Glucose (Glucose Gel 15 Gm Gel..Gram.) 15 gm PO Q15M PRN; Protocol PRN Reason: per Hypoglycemia Standing Ord. Lactated Ringer's (Lr) 1,000 mls @ 100 mls/hr IVCONT .Q10H LINDY Dextrose (D10) 250 mls @ 750 mls/hr IV Q15M PRN; Protocol PRN Reason: per Hypoglycemia Standing Ord. Insulin Human Lispro (Insulin Lispro 100 Unit/Ml 3 Ml Vial) 0 unit SUBCUT QIDACHS ON LICENSE OF [facility]; Protocol Magnesium Hydroxide (Milk Of Magnesia 30 Ml Oral.Susp) 30 ml PO DAILY PRN PRN Reason: Constipation Melatonin (Melatonin 3 Mg Tablet) 6 mg PO BEDTIME PRN PRN Reason: Insomnia Ondansetron HCl (Ondansetron Hcl 4 Mg/2 Ml Vial) 4 mg IVPUSH Q8H PRN PRN Reason: Nausea and Vomiting Sodium Chloride (0.9 % Sodium Chloride Flush 3 Ml Syringe) 3 ml IVFLUSH QSHIFT ON LICENSE OF [facility] Physical Exam Vital Signs and Narrative: Vital Signs: Last Vital Signs Temp 98.4 F 03/22/24 23:20 Pulse 100 03/22/24 23:20 Resp 16 03/22/24 23:20 BP 100/65 03/22/24 23:20 Pulse Ox 95 03/22/24 23:20 O2 Del Method Room Air 03/22/24 23:20 BMI result Body Mass Index 34.9 Const: Other: General: AO X 3, no acute distress HEENT: normal eye movment, no jaundice Resp: CTA bilateral CVS: S1,S2,RRR GI: +BS, NT, no distention MSK; hip movment without pain Skin: No rash Neuro: motor grossly intact, CN 2 to 12 intact Psych: appropriate affect Results Labs 03/22/24 22:58 03/22/24 22:58 Labs: Laboratory Results - last 24 hr 03/22/24 03/22/24 03/22/24 22:36 22:58 22:59 MCV 89.0 MCH 30.4 MCHC 34.2 RDW 13.2 Plt Count 304 MPV 10.9 Immature Gran % (Auto) 0.5 H Neut % (Auto) 77.1 H Lymph % (Auto) 11.6 L [place] % (Auto) 10.2 Eos % (Auto) 0.2 Baso % (Auto) 0.4 Lymph # (Auto) 2.3 [place] # (Auto) 2.0 H Eos # (Auto) 0.0 Baso # (Auto) 0.1 Abs Immat Gran (auto) 0.10 H Absolute Neuts (auto) 15.3 H Absolute Nucleated RBC 0.000 Nucleated RBC % (auto) 0.0 Smear Tech's Comments VERIFIED PT 12.1 INR 1.0 Anion Gap 23 H Estim Creat Clear Calc 41.7 Estimated GFR 32 POC Glucose 154 H Random Glucose 177 H Lactic Acid 3.8 H* Calcium 9.7 Magnesium 1.8 Total Bilirubin 0.8 AST 66 H ALT 50 H Alkaline Phosphatase 76 Total Protein 7.8 Albumin 4.1 Urine Color Urine Appearance Urine pH Ur Specific [place] Urine Protein Urine Glucose (UA) Urine Ketones Urine Blood Urine Nitrite Ur Leukocyte Esterase Influenza Type A (PCR) NEGATIVE Influenza Type B (PCR) NEGATIVE RSV RNA Qual (PCR) NEGATIVE SARS-CoV-2 RNA (RT-PCR) NEGATIVE 03/22/24 23:49 MCV MCH MCHC RDW Plt Count MPV Immature Gran % (Auto) Neut % (Auto) Lymph % (Auto) [place] % (Auto) Eos % (Auto) Baso % (Auto) Lymph # (Auto) [place] # (Auto) Eos # (Auto) Baso # (Auto) Abs Immat Gran (auto) Absolute Neuts (auto) Absolute Nucleated RBC Nucleated RBC % (auto) Smear Tech's Comments PT INR Anion Gap Estim Creat Clear Calc Estimated GFR POC Glucose Random Glucose Lactic Acid Calcium Magnesium Total Bilirubin AST ALT Alkaline Phosphatase Total Protein Albumin Urine Color Dark Yellow Urine Appearance Clear Urine pH 5.0 Ur Specific [place] 1.020 Urine Protein 100 (2+) H Urine Glucose (UA) 100 H Urine Ketones Trace Urine Blood Large (3+) H Urine Nitrite Positive H Ur Leukocyte Esterase Small (1+) H Influenza Type A (PCR) Influenza Type B (PCR) RSV RNA Qual (PCR) SARS-CoV-2 RNA (RT-PCR) Assessment and Plan (1) Acute UTI: Status: Acute (2) SIRS (systemic inflammatory response syndrome): Status: Acute (3) Weakness: Status: Acute Plan A 69-year-old male with a history of diabetes mellitus (DM), hypertension (HTN), and liver disease was found alone in [place] after slipping and falling while walking to a store to buy batteries for his remote. He reports difficulty getting up and was exposed to cold temperatures for at least one hour. He denies head, neck, or hip injuries but states he has been feeling weak due to diarrhea over the past few days. Additionally, he has not taken his insulin for at least six days. Severe sepsis d/t UTI -continue Ceftriaxone -follow culture result Acute lactic acidosis-likely from sepsis and renal failure -IVF and repeat level until trending down NATALYA--likely from pre-renal state from diarrhea and possibly sepsis -IVF -repeat labs, if not improving, get US and nephrology consult -avoid nephrotoxin Diarrhea -obtain c dif sample and check gi panel if diarrhea persists DM--hasn't been taking meds (outpt records show glipizide, metformin and lantus) -SSI -hold glpizide and Lantus for now -check sugars per protocol HTN--restart home meds once verified Fall--mechaical, no obvious injury -PT eval prior to dc DVT prophylaxis--heparin Full code Admission for management of uti,sepsis, natalya.. needs ivf and monitoring of lab Quality Stroke Does the patient have a stroke diagnosis?: No VTE Prior VTE?: No VTE Risk Level:: Medical - moderate - high VTE Device Contraindication: N/A - Device Ordered VTE Drug Contraindication: N/A - Med Ordered
[2024-03-23 00:07] LABS: Bacteria Urine None Seen (None Seen); Squamous Epithelial Cell Urine 0-2 /HPF (0-2); UACC Culture Trigger YES
[2024-03-23] MEDS: Lactated Ringers 1,000 ML 100 ML IVCONT ×3 (00:11→19:28)
[2024-03-23 01:04] LABS: Reflex Lactate? Lactic Acid Added
--- NOTE | 2024-03-23 01:20 | MHC.EDTECH ---
Vitals taken,repeat lactic drawn and sent to lab.
[2024-03-23 01:51] LABS: ~Lactic Acid-LAB USE ONLY 2.5 mmol/L (0.5-2.0)
[2024-03-23 03:18] LABS: Reflex Lactate? 2 Y
[2024-03-23 04:15] LABS: Hematocrit 41.4 % (42.0-52.0); Hemoglobin 14.3 g/dl (14.0-18.0); Mean Corpuscular HGB Conc 34.5 g/dl (31.0-36.0); Mean Corpuscular Hemoglobin 30.7 pg (27.0-33.0); Mean Corpuscular Volume 88.8 fL (80.0-98.0); Mean Platelet Volume 10.9 fL (9.4-12.4); Platelet Count 249 X10*3/uL (160-400); Red Blood Count 4.66 X10*6/uL (4.60-5.80); Red Cell Distribution Width 13.2 % (11.0-16.0); White Blood Count 19.6 X10*3/uL (4.8-10.8)
[2024-03-23 04:28] LABS: Anion Gap 17 (12-20); Blood Urea Nitrogen 44 mg/dL (9-16); Calcium 8.8 mg/dL (8.4-10.2); Carbon Dioxide 21 mmol/L (22-29); Chloride 104 mmol/L (96-108); Creatinine Clr Calc Pharmacy 50.4; Estimated Glomerular Filt Rate 39; Glucose Random 217 mg/dL (60-115); Potassium 3.8 mmol/L (3.3-5.1); Sodium 138 mmol/L (135-145)
[2024-03-23 04:29] LABS: ~Lactic Acid-LAB USE ONLY 1.6 mmol/L (0.5-2.0)
[2024-03-23] MEDS: Flu Vacc TS2024-25(6mos up)/PF 0.5 ML SYRINGE IM (05:33)
[2024-03-23 07:40] LABS: Glucose, Whole Blood 191 mg/dL (60-115)
[2024-03-23] MEDS: Enoxaparin Sodium 40 MG/0.4 ML SYRINGE SUBCUT (08:31)
[2024-03-23] MEDS: Insulin Lispro 100 UNIT/ML 3 ML VIAL SUBCUT ×3 (08:33→21:26)
[2024-03-23] MEDS: 0.9 % Sodium Chloride Flush 3 ML SYRINGE IVFLUSH ×2 (08:36→21:27)
--- NOTE | 2024-03-23 09:00 | PHA.MEDREC ---
Pharmacy Consult ? Medication Reconciliation Pharmacy has completed the medication reconciliation Spoke with patient to confirm medications. Patient has not picked up/started Lantus or Ozempic. Provider made aware med rec complete. .
[2024-03-23 11:29] LABS: Glucose, Whole Blood 137 mg/dL (60-115)
--- NOTE | 2024-03-23 11:48 | MHC.CM.PN ---
IMM 03/23/24, Pt lives alone, is independent, no home health services, for DME he has a cane. HCP discussed, he said it is his sister, he declined to complete form. Pt does not know the name of his PCP, he said she is at [facility]. Pt. can arrange transport home at DC. DCP: home with services. CM to follow for DC needs.
--- NOTE | 2024-03-23 11:55 | HO.PM.IMPN ---
Subjective Subjective Date of Service: 03/23/24 Interval History: seen and evaluated this morning Cr improving He feels little better No other events Review of Systems Review of Systems: Yes all other systems are reviewed and are negative Physical Exam Vital Signs: Vital Signs: Last Vital Signs Temp 97.7 F 03/23/24 07:42 Pulse 92 03/23/24 07:42 Resp 18 03/23/24 07:42 BP 118/66 03/23/24 07:42 Pulse Ox 93 03/23/24 07:42 O2 Del Method Room Air 03/23/24 07:42 BMI result Body Mass Index 34.9 Const: Other: General: AO X 3, no acute distress HEENT: normal eye movment, no jaundice Resp: CTA bilateral CVS: S1,S2,RRR GI: +BS, NT, no distention MSK; hip movment without pain Skin: No rash Neuro: motor grossly intact, CN 2 to 12 intact Psych: appropriate affect Objective Data Active Medications Acetaminophen (Acetaminophen 325 Mg Tablet) 650 mg PO Q6H PRN PRN Reason: Pain, Mild (Pain Scale 1-3), fever or headache Calcium Carbonate (Calcium Carbonate 750 Mg Tab.Chew) 750 mg PO Q4H PRN PRN Reason: Heartburn Ceftriaxone Sodium (Ceftriaxone Sodium 1 Gm Vial) 1 gm IVPUSH Q24H LINDY Enoxaparin Sodium (Enoxaparin Sodium 40 Mg/0.4 Ml Syringe) 40 mg SUBCUT DAILY [facility] Last Admin: 03/23/24 08:31 Dose: 40 mg Documented By: ZENA Glucose (Glucose Gel 15 Gm Gel..Gram.) 15 gm PO Q15M PRN; Protocol PRN Reason: per Hypoglycemia Standing Ord. Lactated Ringer's (Lr) 1,000 mls @ 100 mls/hr IVCONT .Q10H [facility] Last Admin: 03/23/24 10:24 Dose: 100 mls/hr Documented By: ZENA Dextrose (D10) 250 mls @ 750 mls/hr IV Q15M PRN; Protocol PRN Reason: per Hypoglycemia Standing Ord. Insulin Human Lispro (Insulin Lispro 100 Unit/Ml 3 Ml Vial) 0 unit SUBCUT QIDACHS [facility]; Protocol Last Admin: 03/23/24 11:36 Dose: Not Given Documented By: ZENA Non-Admin Reason: No Insulin Coverage Magnesium Hydroxide (Milk Of Magnesia 30 Ml Oral.Susp) 30 ml PO DAILY PRN PRN Reason: Constipation Melatonin (Melatonin 3 Mg Tablet) 6 mg PO BEDTIME PRN PRN Reason: Insomnia Ondansetron HCl (Ondansetron Hcl 4 Mg/2 Ml Vial) 4 mg IVPUSH Q8H PRN PRN Reason: Nausea and Vomiting Sodium Chloride (0.9 % Sodium Chloride Flush 3 Ml Syringe) 3 ml IVFLUSH QSHIFT [facility] Last Admin: 03/23/24 08:36 Dose: 3 ml Documented By: ZENA Labs 03/23/24 04:02 03/23/24 04:02 Labs: Laboratory Results - last 24 hr 03/22/24 03/22/24 03/22/24 22:36 22:58 22:59 MCV 89.0 MCH 30.4 MCHC 34.2 RDW 13.2 Plt Count 304 MPV 10.9 Immature Gran % (Auto) 0.5 H Neut % (Auto) 77.1 H Lymph % (Auto) 11.6 L [place] % (Auto) 10.2 Eos % (Auto) 0.2 Baso % (Auto) 0.4 Lymph # (Auto) 2.3 [place] # (Auto) 2.0 H Eos # (Auto) 0.0 Baso # (Auto) 0.1 Abs Immat Gran (auto) 0.10 H Absolute Neuts (auto) 15.3 H Absolute Nucleated RBC 0.000 Nucleated RBC % (auto) 0.0 Smear Tech's Comments VERIFIED PT 12.1 INR 1.0 Anion Gap 23 H Estim Creat Clear Calc 41.7 Estimated GFR 32 POC Glucose 154 H Random Glucose 177 H Lactic Acid 3.8 H* Lactic Acid F/U @ 2Hr Lactic Acid F/U @ 4Hr Calcium 9.7 Magnesium 1.8 Total Bilirubin 0.8 AST 66 H ALT 50 H Alkaline Phosphatase 76 Total Protein 7.8 Albumin 4.1 Urine Color Urine Appearance Urine pH Ur Specific [place] Urine Protein Urine Glucose (UA) Urine Ketones Urine Blood Urine Nitrite Ur Leukocyte Esterase Urine RBC Urine WBC Ur Squamous Epith Cells Urine Bacteria Hyaline Casts Influenza Type A (PCR) NEGATIVE Influenza Type B (PCR) NEGATIVE RSV RNA Qual (PCR) NEGATIVE SARS-CoV-2 RNA (RT-PCR) NEGATIVE 03/22/24 03/23/24 03/23/24 23:49 01:16 04:02 MCV 88.8 MCH 30.7 MCHC 34.5 RDW 13.2 Plt Count 249 MPV 10.9 Immature Gran % (Auto) Neut % (Auto) Lymph % (Auto) [place] % (Auto) Eos % (Auto) Baso % (Auto) Lymph # (Auto) [place] # (Auto) Eos # (Auto) Baso # (Auto) Abs Immat Gran (auto) Absolute Neuts (auto) Absolute Nucleated RBC 0.000 Nucleated RBC % (auto) 0.0 Smear Tech's Comments PT INR Anion Gap 17 Estim Creat Clear Calc 50.4 Estimated GFR 39 POC Glucose Random Glucose 217 H Lactic Acid Lactic Acid F/U @ 2Hr 2.5 H* Lactic Acid F/U @ 4Hr 1.6 Calcium 8.8 D Magnesium Total Bilirubin AST ALT Alkaline Phosphatase Total Protein Albumin Urine Color Dark Yellow Urine Appearance Clear Urine pH 5.0 Ur Specific [place] 1.020 Urine Protein 100 (2+) H Urine Glucose (UA) 100 H Urine Ketones Trace Urine Blood Large (3+) H Urine Nitrite Positive H Ur Leukocyte Esterase Small (1+) H Urine RBC 6-10 H Urine WBC 11-20 H Ur Squamous Epith Cells 0-2 Urine Bacteria None Seen Hyaline Casts 6-10 Influenza Type A (PCR) Influenza Type B (PCR) RSV RNA Qual (PCR) SARS-CoV-2 RNA (RT-PCR) 03/23/24 03/23/24 07:25 11:12 MCV MCH MCHC RDW Plt Count MPV Immature Gran % (Auto) Neut % (Auto) Lymph % (Auto) [place] % (Auto) Eos % (Auto) Baso % (Auto) Lymph # (Auto) [place] # (Auto) Eos # (Auto) Baso # (Auto) Abs Immat Gran (auto) Absolute Neuts (auto) Absolute Nucleated RBC Nucleated RBC % (auto) Smear Tech's Comments PT INR Anion Gap Estim Creat Clear Calc Estimated GFR POC Glucose 191 H 137 H Random Glucose Lactic Acid Lactic Acid F/U @ 2Hr Lactic Acid F/U @ 4Hr Calcium Magnesium Total Bilirubin AST ALT Alkaline Phosphatase Total Protein Albumin Urine Color Urine Appearance Urine pH Ur Specific [place] Urine Protein Urine Glucose (UA) Urine Ketones Urine Blood Urine Nitrite Ur Leukocyte Esterase Urine RBC Urine WBC Ur Squamous Epith Cells Urine Bacteria Hyaline Casts Influenza Type A (PCR) Influenza Type B (PCR) RSV RNA Qual (PCR) SARS-CoV-2 RNA (RT-PCR) Assessment and Plan (1) Weakness: Status: Acute (2) Acute UTI: Status: Acute (3) Sepsis: Status: Acute Plan A 69-year-old male with a history of diabetes mellitus (DM), hypertension (HTN), and liver disease was found alone in [place] after slipping and falling while walking to a store to buy batteries for his remote. He reports difficulty getting up and was exposed to cold temperatures for at least one hour. He denies head, neck, or hip injuries but states he has been feeling weak due to diarrhea over the past few days. Additionally, he has not taken his insulin for at least six days. Severe sepsis 2/2 UTI continue Ceftriaxone pending culture Acute lactic acidosis-likely from sepsis and renal failure resolved with IVF NATALYA pre-renal state from diarrhea and possibly sepsis improving continue IVF avoid nephrotoxin Diarrhea better now , no more diarrhea reported overnight DM Not taking home meds SSI hold glpizide and Lantus for now HTN restart as tolerated Fall mechaical, no obvious injury PT eval DVT prophylaxis heparin Full code will need overnight hospital stay for UTI,sepsis, natalya Quality Stroke Does the patient have a stroke diagnosis?: No VTE Prior VTE?: No VTE Risk Level:: Medical - moderate - high VTE Device Contraindication: N/A - Device Ordered VTE Drug Contraindication: N/A - Med Ordered
[2024-03-23 12:25] LABS: Estimated Average Glucose 169 mg/dL; Hemoglobin A1C 214.4092 umol/L; Hemoglobin A1c % 7.5 % (<6.0); Total Hemoglobin (HGBA1C) 3641.0129 umol/L
[2024-03-23 16:21] LABS: Glucose, Whole Blood 162 mg/dL (60-115)
[2024-03-23 20:25] LABS: Glucose, Whole Blood 194 mg/dL (60-115)
[2024-03-23] MEDS: Gabapentin 100 MG CAPSULE PO (21:26)
[2024-03-23] MEDS: carvediloL 6.25 MG TABLET PO (21:26)
[2024-03-23] MEDS: cefTRIAXone sodium 1 GM VIAL IVPUSH (21:26)
[2024-03-23] MEDS: Melatonin 3 MG TABLET 6 MG PO (23:48)
[2024-03-24 03:49] VITALS: BP 119/50; PULSE 82; RESP 18; TEMP 36.6; O2SAT 94
[2024-03-24] MEDS: Lactated Ringers 1,000 ML 100 ML IVCONT (04:00)
[2024-03-24 07:37] LABS: Hematocrit 40.9 % (42.0-52.0); Hemoglobin 13.7 g/dl (14.0-18.0); Mean Corpuscular HGB Conc 33.5 g/dl (31.0-36.0); Mean Corpuscular Hemoglobin 30.4 pg (27.0-33.0); Mean Corpuscular Volume 90.7 fL (80.0-98.0); Mean Platelet Volume 11.4 fL (9.4-12.4); Platelet Count 236 X10*3/uL (160-400); Red Blood Count 4.51 X10*6/uL (4.60-5.80); Red Cell Distribution Width 13.2 % (11.0-16.0); White Blood Count 11.4 X10*3/uL (4.8-10.8)
[2024-03-24 08:01] LABS: Alanine Aminotransferase 43 U/L (0-40); Albumin Level 3.4 g/dL (3.5-5.0); Alkaline Phosphatase 57 U/L (39-117); Anion Gap 15 (12-20); Aspartate Amino Transferase 68 U/L (5-37); Bilirubin Direct 0.3 mg/dL (0.0-0.5); Bilirubin Total 0.7 mg/dL (0.0-1.0); Blood Urea Nitrogen 32 mg/dL (9-16); Calcium 8.5 mg/dL (8.4-10.2); Carbon Dioxide 25 mmol/L (22-29); Chloride 101 mmol/L (96-108); Creatinine Clr Calc Pharmacy 77.4; Estimated Glomerular Filt Rate > 60; Glucose Random 138 mg/dL (60-115); Potassium 3.4 mmol/L (3.3-5.1); Sodium 138 mmol/L (135-145); Total Protein 6.6 g/dL (6.5-8.0)
--- NOTE | 2024-03-24 09:16 | PC.NURSE ---
Patient refusing vitals signs, POC, and morning medications. Patient allowed primary care RN to assess heart, lung, and bowel sounds. Offered no complaints regarding bowel habits. Denies nausea or vomiting. Providing short and vague answers to questions. Declined further physical assessment. Dr. Giovany self.
[2024-03-24 09:22] VITALS: BP 119/50; PULSE 82; O2SAT 94
--- NOTE | 2024-03-24 09:24 | PC.NURSE ---
IV fluids placed on hold at this time per Dr. Adair.
[2024-03-24 11:37] VITALS: BP 119/50; PULSE 82; O2SAT 94
[2024-03-24 11:39] LABS: Glucose, Whole Blood 165 mg/dL (60-115)
[2024-03-24 11:42] VITALS: BP 124/69; PULSE 84; RESP 18; TEMP 36.4; O2SAT 96
[2024-03-24] MEDS: Insulin Lispro 100 UNIT/ML 3 ML VIAL SUBCUT ×2 (11:51→17:08)
[2024-03-24] MEDS: Enoxaparin Sodium 40 MG/0.4 ML SYRINGE SUBCUT (11:51)
[2024-03-24] MEDS: carvediloL 6.25 MG TABLET PO ×2 (11:51→21:30)
[2024-03-24] MEDS: amLODIPine Besylate 2.5 MG TABLET PO (11:51)
--- NOTE | 2024-03-24 12:16 | MHC.CM.PN ---
PT IS RECOMMENDING STR, PT IS AGREEABLE AND SAYS [facility] IS PREFERRED REFERRAL PLACED
--- NOTE | 2024-03-24 12:42 | HO.PM.IMPN ---
Subjective Subjective Date of Service: 03/24/24 Interval History: seen and evaluated this morning Cr back to baseline He feels little better No other events Review of Systems Review of Systems: Yes all other systems are reviewed and are negative Physical Exam Vital Signs: Vital Signs: Last Vital Signs Temp 97.6 F 03/24/24 11:42 Pulse 84 03/24/24 11:42 Resp 18 03/24/24 11:42 BP 124/69 03/24/24 11:42 Pulse Ox 96 03/24/24 11:42 O2 Del Method Room Air 03/24/24 11:42 BMI result Body Mass Index 34.9 Const: Other: General: AO X 3, no acute distress HEENT: normal eye movment, no jaundice Resp: CTA bilateral CVS: S1,S2,RRR GI: +BS, NT, no distention MSK; hip movment without pain Skin: No rash Neuro: motor grossly intact, CN 2 to 12 intact Psych: appropriate affect Objective Data Active Medications Acetaminophen (Acetaminophen 325 Mg Tablet) 650 mg PO Q6H PRN PRN Reason: Pain, Mild (Pain Scale 1-3), fever or headache Amlodipine Besylate (Amlodipine Besylate 2.5 Mg Tablet) 2.5 mg PO DAILY [facility]; Protocol Last Admin: 03/24/24 11:51 Dose: 2.5 mg Documented By: TISHA Calcium Carbonate (Calcium Carbonate 750 Mg Tab.Chew) 750 mg PO Q4H PRN PRN Reason: Heartburn Carvedilol (Carvedilol 6.25 Mg Tablet) 6.25 mg PO BID [facility]; Protocol Last Admin: 03/24/24 11:51 Dose: 6.25 mg Documented By: TISHA Ceftriaxone Sodium (Ceftriaxone Sodium 1 Gm Vial) 1 gm IVPUSH Q24H [facility] Last Admin: 03/23/24 21:26 Dose: 1 gm Documented By: SHO Enoxaparin Sodium (Enoxaparin Sodium 40 Mg/0.4 Ml Syringe) 40 mg SUBCUT DAILY [facility] Last Admin: 03/24/24 11:51 Dose: 40 mg Documented By: TISHA Gabapentin (Gabapentin 100 Mg Capsule) 100 mg PO BEDTIME [facility] Last Admin: 03/23/24 21:26 Dose: 100 mg Documented By: SHO Glucose (Glucose Gel 15 Gm Gel..Gram.) 15 gm PO Q15M PRN; Protocol PRN Reason: per Hypoglycemia Standing Ord. Lactated Ringer's (Lr) 1,000 mls @ 100 mls/hr IVCONT .Q10H [facility] Last Infusion: 03/24/24 09:23 Dose: 0 mls/hr Documented By: TISHA Dextrose (D10) 250 mls @ 750 mls/hr IV Q15M PRN; Protocol PRN Reason: per Hypoglycemia Standing Ord. Insulin Human Lispro (Insulin Lispro 100 Unit/Ml 3 Ml Vial) 0 unit SUBCUT QIDACHS [facility]; Protocol Last Admin: 03/24/24 11:51 Dose: 2 unit Documented By: TISHA Magnesium Hydroxide (Milk Of Magnesia 30 Ml Oral.Susp) 30 ml PO DAILY PRN PRN Reason: Constipation Melatonin (Melatonin 3 Mg Tablet) 6 mg PO BEDTIME PRN PRN Reason: Insomnia Last Admin: 03/23/24 23:48 Dose: 6 mg Documented By: SHO Ondansetron HCl (Ondansetron Hcl 4 Mg/2 Ml Vial) 4 mg IVPUSH Q8H PRN PRN Reason: Nausea and Vomiting Sodium Chloride (0.9 % Sodium Chloride Flush 3 Ml Syringe) [facility] Last Admin: 03/24/24 09:43 Dose: Not Given Documented By: TISHA Non-Admin Reason: IV Running Labs 03/24/24 05:38 03/24/24 05:38 Labs: Laboratory Results - last 24 hr 03/23/24 03/23/24 03/24/24 16:08 20:19 05:38 MCV 90.7 MCH 30.4 MCHC 33.5 RDW 13.2 Plt Count 236 MPV 11.4 Absolute Nucleated RBC 0.000 Nucleated RBC % (auto) 0.0 Anion Gap 15 Estim Creat Clear Calc 77.4 Estimated GFR > 60 POC Glucose 162 H 194 H Random Glucose 138 H Calcium 8.5 Total Bilirubin 0.7 Direct Bilirubin 0.3 AST 68 H ALT 43 H Alkaline Phosphatase 57 Total Protein 6.6 Albumin 3.4 L 03/24/24 11:32 MCV MCH MCHC RDW Plt Count MPV Absolute Nucleated RBC Nucleated RBC % (auto) Anion Gap Estim Creat Clear Calc Estimated GFR POC Glucose 165 H Random Glucose Calcium Total Bilirubin Direct Bilirubin AST ALT Alkaline Phosphatase Total Protein Albumin Microbiology Microbiology Results: Microbiology 03/23/24 Unknown Urine Culture - Preliminary Urine Catheterized - Ball Catheter Culture in progress. 03/22/24 23:34 Blood Culture - Preliminary Blood - Venous No growth after 24 hours. 03/22/24 22:58 Blood Culture - Preliminary Blood - Venous No growth after 24 hours. Assessment and Plan (1) Acute kidney injury: Status: Acute (2) Sepsis: Status: Acute (3) Weakness: Status: Acute (4) Acute UTI: Status: Acute Plan A 69-year-old male with a history of diabetes mellitus (DM), hypertension (HTN), and liver disease was found alone in [place] after slipping and falling while walking to a store to buy batteries for his remote. He reports difficulty getting up and was exposed to cold temperatures for at least one hour. He denies head, neck, or hip injuries but states he has been feeling weak due to diarrhea over the past few days. Additionally, he has not taken his insulin for at least six days. Severe sepsis 2/2 UTI sepsis resolved pending culture continue Ceftriaxone Acute lactic acidosis-likely from sepsis and renal failure resolved with IVF ARIANNE pre-renal state from diarrhea and possibly sepsis resolved dc IVF avoid nephrotoxin physical deconditioning PT rec SNF Diarrhea better now , no more diarrhea reported overnight DM Not taking home meds SSI hold glpizide and Lantus for now HTN restart as tolerated Fall mechaical, no obvious injury PT eval DVT prophylaxis heparin Full code will need overnight hospital stay for UTI,sepsis pending final blood cultures Quality Stroke Does the patient have a stroke diagnosis?: No VTE Prior VTE?: No VTE Risk Level:: Medical - moderate - high VTE Device Contraindication: N/A - Device Ordered VTE Drug Contraindication: N/A - Med Ordered
[2024-03-24 15:27] VITALS: BP 142/76; PULSE 71; RESP 20; TEMP 36.2; O2SAT 97
[2024-03-24 16:29] LABS: Glucose, Whole Blood 167 mg/dL (60-115)
[2024-03-24] MEDS: 0.9 % Sodium Chloride Flush 3 ML SYRINGE IVFLUSH ×2 (17:09→21:31)
[2024-03-24 19:34] VITALS: BP 122/82; PULSE 80; RESP 20; TEMP 36.3; O2SAT 94
[2024-03-24 20:00] LABS: Glucose, Whole Blood 148 mg/dL (60-115)
[2024-03-24] MEDS: cefTRIAXone sodium 1 GM VIAL IVPUSH (21:30)
[2024-03-24] MEDS: Gabapentin 100 MG CAPSULE PO (21:30)
[2024-03-25 04:00] VITALS: BP 136/71; PULSE 81; RESP 18; TEMP 36.3; O2SAT 95
[2024-03-25 07:44] LABS: Glucose, Whole Blood 160 mg/dL (60-115)
[2024-03-25 08:07] VITALS: BP 109/76; PULSE 73; RESP 12; TEMP 36.8; O2SAT 97
[2024-03-25] MEDS: carvediloL 6.25 MG TABLET PO ×2 (08:08→21:01)
[2024-03-25] MEDS: amLODIPine Besylate 2.5 MG TABLET PO (08:08)
[2024-03-25] MEDS: Insulin Lispro 100 UNIT/ML 3 ML VIAL SUBCUT ×4 (08:08→21:02)
[2024-03-25] MEDS: Enoxaparin Sodium 40 MG/0.4 ML SYRINGE SUBCUT (08:09)
[2024-03-25] MEDS: 0.9 % Sodium Chloride Flush 3 ML SYRINGE IVFLUSH ×3 (08:10→21:02)
--- NOTE | 2024-03-25 10:20 | MHC.CM.PN ---
Addendum entered by Rae Shepard 03/25/24 12:34: [facility] HAS RESPONDED AND HAVE INDICATED PT IS COMING UP ACTIVE WITH A MANAGED MEDICARE THAT WOULD REQUIRE AUTH CM EXPANDED REFERRAL TO TWO OTHER SNFS, ONE OF WHICH HAS NO BEDS UNTIL WEDNESDAY REGAL CARE STILL REVIEWING Original Note: PT IS MEDICALLY CLEARED TO DC TO [facility] IS PTS PREFERRED SNF TWO MESSAGES LEFT FOR SNF LIAISON REQUESTING A RESPONSE TO REFERRAL
[2024-03-25 11:18] LABS: Glucose, Whole Blood 191 mg/dL (60-115)
--- NOTE | 2024-03-25 13:17 | HO.PM.IMPN ---
Subjective Subjective Date of Service: 03/25/24 Interval History: seen and evaluated this morning Cr back to baseline He feels little better No other events Review of Systems Review of Systems: Yes all other systems are reviewed and are negative Physical Exam Vital Signs: Vital Signs: Last Vital Signs Temp 98.3 F 03/25/24 08:07 Pulse 73 03/25/24 08:07 Resp 12 03/25/24 08:07 BP 109/76 03/25/24 08:07 Pulse Ox 97 03/25/24 08:07 O2 Del Method Room Air 03/25/24 08:07 BMI result Body Mass Index 34.9 Const: Other: General: AO X 3, no acute distress HEENT: normal eye movment, no jaundice Resp: CTA bilateral CVS: S1,S2,RRR GI: +BS, NT, no distention MSK; hip movment without pain Skin: No rash Neuro: motor grossly intact, CN 2 to 12 intact Psych: appropriate affect Objective Data Active Medications Acetaminophen (Acetaminophen 325 Mg Tablet) 650 mg PO Q6H PRN PRN Reason: Pain, Mild (Pain Scale 1-3), fever or headache Amlodipine Besylate (Amlodipine Besylate 2.5 Mg Tablet) 2.5 mg PO DAILY [facility]; Protocol Last Admin: 03/25/24 08:08 Dose: 2.5 mg Documented By: RAJAN Calcium Carbonate (Calcium Carbonate 750 Mg Tab.Chew) 750 mg PO Q4H PRN PRN Reason: Heartburn Carvedilol (Carvedilol 6.25 Mg Tablet) 6.25 mg PO BID [facility]; Protocol Last Admin: 03/25/24 08:08 Dose: 6.25 mg Documented By: RAJAN Ceftriaxone Sodium (Ceftriaxone Sodium 1 Gm Vial) 1 gm IVPUSH Q24H [facility] Last Admin: 03/24/24 21:30 Dose: 1 gm Documented By: MAEVE Enoxaparin Sodium (Enoxaparin Sodium 40 Mg/0.4 Ml Syringe) 40 mg SUBCUT DAILY [facility] Last Admin: 03/25/24 08:09 Dose: 40 mg Documented By: RAJAN Gabapentin (Gabapentin 100 Mg Capsule) 100 mg PO BEDTIME [facility] Last Admin: 03/24/24 21:30 Dose: 100 mg Documented By: MAEVE Glucose (Glucose Gel 15 Gm Gel..Gram.) 15 gm PO Q15M PRN; Protocol PRN Reason: per Hypoglycemia Standing Ord. Dextrose (D10) 250 mls @ 750 mls/hr IV Q15M PRN; Protocol PRN Reason: per Hypoglycemia Standing Ord. Insulin Human Lispro (Insulin Lispro 100 Unit/Ml 3 Ml Vial) 0 unit SUBCUT QIDACHS [facility]; Protocol Last Admin: 03/25/24 11:48 Dose: 2 unit Documented By: RAJAN Magnesium Hydroxide (Milk Of Magnesia 30 Ml Oral.Susp) 30 ml PO DAILY PRN PRN Reason: Constipation Melatonin (Melatonin 3 Mg Tablet) 6 mg PO BEDTIME PRN PRN Reason: Insomnia Last Admin: 03/23/24 23:48 Dose: 6 mg Documented By: SHO Ondansetron HCl (Ondansetron Hcl 4 Mg/2 Ml Vial) 4 mg IVPUSH Q8H PRN PRN Reason: Nausea and Vomiting Sodium Chloride (0.9 % Sodium Chloride Flush 3 Ml Syringe) 3 ml IVFLUSH [facility] Last Admin: 03/25/24 08:10 Dose: 3 ml Documented By: RAJAN Labs 03/24/24 05:38 03/24/24 05:38 Labs: Laboratory Results - last 24 hr 03/24/24 03/24/24 03/25/24 16:22 19:40 07:38 POC Glucose 167 H 148 H 160 H 03/25/24 11:14 POC Glucose 191 H Microbiology Microbiology Results: Microbiology 03/23/24 Unknown Urine Culture - Preliminary Urine Catheterized - Ball Catheter Coag negative Staphylococcus 03/22/24 23:34 Blood Culture - Preliminary Blood - Venous No growth after 48 hours. 03/22/24 22:58 Blood Culture - Preliminary Blood - Venous No growth after 48 hours. Assessment and Plan (1) Acute kidney injury: Status: Acute (2) Sepsis: Status: Acute (3) Acute UTI: Status: Acute Plan A 69-year-old male with a history of diabetes mellitus (DM), hypertension (HTN), and liver disease was found alone in [place] after slipping and falling while walking to a store to buy batteries for his remote. He reports difficulty getting up and was exposed to cold temperatures for at least one hour. He denies head, neck, or hip injuries but states he has been feeling weak due to diarrhea over the past few days. Additionally, he has not taken his insulin for at least six days. Severe sepsis 2/2 UTI sepsis resolved Coag neg staph in urine culture, likely contaminent blood culture negative continue Ceftriaxone Acute lactic acidosis-likely from sepsis and renal failure resolved with IVF ARIANNE pre-renal state from diarrhea and possibly sepsis resolved dc IVF avoid nephrotoxin physical deconditioning PT rec SNF Diarrhea better now , no more diarrhea reported overnight DM Not taking home meds SSI hold glpizide and Lantus for now HTN restart as tolerated Fall mechaical, no obvious injury PT eval DVT prophylaxis heparin Full code will need overnight hospital stay for UTI,sepsis pending final blood cultures and safe discharge plan Quality Stroke Does the patient have a stroke diagnosis?: No VTE Prior VTE?: No VTE Risk Level:: Medical - moderate - high VTE Device Contraindication: N/A - Device Ordered VTE Drug Contraindication: N/A - Med Ordered
[2024-03-25 16:06] VITALS: BP 126/70; PULSE 78; RESP 18; TEMP 36.4; O2SAT 94
[2024-03-25 16:19] LABS: Glucose, Whole Blood 191 mg/dL (60-115)
[2024-03-25 18:03] VITALS: BP 151/68; PULSE 83; RESP 20; TEMP 36.6; O2SAT 95
--- NOTE | 2024-03-25 18:03 | PC.NURSE ---
Pt experienced an episode of dizziness when walking to the bathroom with 1A and walker. COMPUTER SYSTEMS SOFTWARE ENGINEER stated Pt became dizzy and leaned up against wall, at this time, COMPUTER SYSTEMS SOFTWARE ENGINEER had to call for help, pt was able to get to chair safely without injury with 2A and walker. This RN assessed pt, pt VSS, 98.0, 83HR , 20RR, 151/68, 95% on room air. Pt states he felt dizzy but felt better sitting, pt also stated he felt like he was going to have diarrhea. Pt educated on use of call dickson and to not get up with out assistance, plans to use bedside commode next time he needs to use the bathroom. MD Adair made aware, no new orders at this time. Pt resting in chair, alarm in place, camera in room.
[2024-03-25 19:07] VITALS: BP 132/75; PULSE 84; RESP 16; TEMP 36.3; O2SAT 95
[2024-03-25 20:12] LABS: Glucose, Whole Blood 225 mg/dL (60-115)
[2024-03-25] MEDS: Gabapentin 100 MG CAPSULE PO (21:01)
[2024-03-25] MEDS: cefTRIAXone sodium 1 GM VIAL IVPUSH (21:02)
[2024-03-26 04:00] VITALS: BP 134/87; PULSE 75; RESP 18; TEMP 36.3; O2SAT 95
[2024-03-26 07:50] LABS: Glucose, Whole Blood 177 mg/dL (60-115)
[2024-03-26 08:03] VITALS: BP 141/71; PULSE 71
[2024-03-26] MEDS: carvediloL 6.25 MG TABLET PO (08:03)
[2024-03-26] MEDS: amLODIPine Besylate 2.5 MG TABLET PO (08:03)
[2024-03-26] MEDS: Enoxaparin Sodium 40 MG/0.4 ML SYRINGE SUBCUT (08:03)
[2024-03-26] MEDS: Insulin Lispro 100 UNIT/ML 3 ML VIAL SUBCUT ×2 (08:03→11:49)
[2024-03-26] MEDS: 0.9 % Sodium Chloride Flush 3 ML SYRINGE IVFLUSH (08:07)
[2024-03-26 08:08] VITALS: BP 141/71; PULSE 70; RESP 12; TEMP 36.1; O2SAT 93
[2024-03-26 11:40] LABS: Glucose, Whole Blood 206 mg/dL (60-115)
--- NOTE | 2024-03-26 12:25 | PM.DS ---
DS: Providers Provider Date of Service: 03/26/24 Date of admission: 03/23/24 00:38 Date of discharge: 03/26/24 Primary care physician: Unknown Physician Consults: 03/23/24 03:26 Consult to Wound Care Routine Reason for consultation: open skin areas on bilat. elbows and knees and right foot DS: Diagnosis Discharge Diagnosis (1) Acute kidney injury: Status: Acute (2) Sepsis: Status: Acute (3) Acute UTI: Status: Acute (4) Physical deconditioning: Status: Acute DS: Summary Hospital Course Hospital Course: Admission note HPI A 69-year-old male with a history of diabetes mellitus (DM), hypertension (HTN), and liver disease was found alone in [place] after slipping and falling while walking to a store to buy batteries for his remote. He reports difficulty getting up and was exposed to cold temperatures for at least one hour. He denies head, neck, or hip injuries but states he has been feeling weak due to diarrhea over the past few days. Additionally, he has not taken his insulin for at least six days. Hospital course Severe sepsis secondary to UTI with staph epidermis growing in urine culture which seems likely a contaminent but was treated with Ceftriaxone with good response in his overall wellbeing. blood culture negative. To be discharged on 5 more days of Cefpodoxime. He was noted to have Acute lactic acidosis-likely from sepsis and renal failure on admission which resolved with IV fluids. Acute kidney injury. likely pre-renal state from diarrhea which has resolved with IV fluids. and holding nephrotoxin. To restart his home medications upon discharge. Evaluated by physical therapy for physical deconditioning who recommended SNF placement. Diarrhea, resolved upon admission, no more diarrhea episodes while inpatient. Discharge plan Continue antibiotics as prescribed increase physical activity as tolerated Time Attestation Discharge Coordination Time (in mins): 43 Quality: Safe Use of Opioids Does Pt have an Active Cancer Diagnosis on the Problem List?: No Quality: Stroke Does the patient have a stroke diagnosis?: No Physical Exam Vital Signs: Vital Signs: Last Vital Signs Temp 97.0 F 03/26/24 08:08 Pulse 70 03/26/24 08:08 Resp 12 03/26/24 08:08 BP 141/71 H 03/26/24 08:08 Pulse Ox 93 03/26/24 08:08 O2 Del Method Room Air 03/26/24 08:08 BMI result Body Mass Index 34.9 Const: Other: General: AO X 3, no acute distress HEENT: normal eye movment, no jaundice Resp: CTA bilateral CVS: S1,S2,RRR GI: +BS, NT, no distention MSK; hip movment without pain Skin: No rash Neuro: motor grossly intact, CN 2 to 12 intact Psych: appropriate affect DS: Data Data Completed and Pending Labs on day of discharge: Laboratory Results - last 24 hr 03/25/24 03/25/24 03/26/24 16:14 20:08 07:40 POC Glucose 191 H 225 H 177 H 03/26/24 11:35 POC Glucose 206 H Preliminary micro results at discharge 03/22/24 23:34 Blood Culture - Preliminary Blood - Venous Prelim: GPR Gram Stain only 03/22/24 22:58 Blood Culture - Preliminary Blood - Venous No growth after 48 hours. Imaging Chest x-ray: Radiologist's impression: ITS Impressions Chest X-Ray 03/22/24 22:38 IMPRESSION: No acute intrathoracic disease. Healing left-sided rib fractures. Electronically signed by: Dexter Ibrahim MD 03/23/2024 12:24 AM [facility] [place] Discharge Plan Discharge Anticipated Discharge Date/Time: 03/26/24 12:14 Patient Disposition: Xfer SNF Discharge Diagnosis: Urine infection kidney injury Referrals: Margaret Guthrie [Outside] Physician,Unknown J [Primary Care Provider] - 1 Week Discharge Medications: New cefpodoxime 100 mg tablet 100 mg PO BID Qty: 10 0RF Rx Instructions: must administer with a meal/food Continued meclizine 25 mg tablet 25 mg PO TID PRN (Reason: dizziness) Qty: 20 0RF carvedilol 6.25 mg tablet 6.25 mg PO BID insulin glargine [Lantus U-100 Insulin] 100 unit/mL solution 0 unit subcut DAILY amlodipine 2.5 mg tablet 2.5 mg PO DAILY chlorthalidone 25 mg tablet 25 mg PO DAILY aspirin 81 mg Tablet,Delayed Release (Dr/Ec) 81 mg PO DAILY metformin 1,000 mg tablet 1,000 mg PO BIDWM gabapentin 100 mg capsule 100 mg PO BEDTIME lisinopril 40 mg tablet 40 mg PO DAILY glipizide 5 mg tablet 5 mg PO DAILY Ozempic 0.25 mg or 0.5 mg (2 mg/3 mL) pen injector 0.25 mg subcut Q7D Discharge Orders: Discharge Order (Routine); Ordered 03/26/24 Ordered By: Coral Adair Diet: Advance to usual diet Activity on Discharge: As tolerated Stand Alone Forms: Patient Portal Discharge page Print Language: Indian Care Plan Goals: Continue antibiotics as prescribed increase physical activity as tolerated Health Concerns: Urine infection physical deconditioning Plan of Treatment: Antibiotic physical therapy Assessment: as above
[2024-03-26 15:48] VITALS: BP 148/77; PULSE 81; RESP 18; TEMP 36.4; O2SAT 96
--- NOTE | 2024-03-26 15:52 | MHC.CM.PN ---
[facility] OFFERING A BED CM SPOKE TO PT AND SON, [place] [phone] THEY HAVE ACCEPTED THE BED BLS TRANSPORT SCHEDULED FOR 1630 HOURS SECOND IMM DELIVERED ON 03/25/24
== END 2024-03-26 16:00 | disposition skilled nursing facility (03) | DRG 872 ==
LOC: HO.ED 03-23 00:15 → HO.EDOVER 03-23 00:38 → HO.S3 03-23 01:00
PROVIDERS: Admitting Provider Internal Medicine; Emergency Provider Internal Medicine; PCP Nurse Practitioner Family; Visit Provider Student in an Organized Health Care Education/Training Program
DX: A41.9 Sepsis, unspecified organism (principal); N39.0 Urinary tract infection, site not specified; E87.21 Acute metabolic acidosis; R19.7 Diarrhea, unspecified; R53.81 Other malaise; R65.20 Severe sepsis without septic shock; I10 Essential (primary) hypertension; Z20.822 Contact with and (suspected) exposure to COVID-19; Z91.148 Patient's other noncompliance with medication regimen for other reason; Z79.4 Long term (current) use of insulin; Z79.82 Long term (current) use of aspirin; Z79.84 Long term (current) use of oral hypoglycemic drugs; Z79.85 Long-term (current) use of injectable non-insulin antidiabetic drugs; Z79.899 Other long term (current) drug therapy
CPT/HCPCS: 0241U; 36415; 71045; 80048; 80053; 80076; 81001; 82947; 83036; 83605; 83735; 85025; 85027; 85610; 87040; 87086; 87088; 87186; 87205; 90656; 93005; 97162; 99285; J0696; J1650; J7120

== ENCOUNTER → 2024-03-22 22:35 | Outpatient (BNV) | payer MEDICARE, SELFPAY | PROVIDERS: Admitting Provider Internal Medicine; Emergency Provider Internal Medicine; Visit Provider Internal Medicine | DX: R94.31 Abnormal electrocardiogram [ECG] [EKG] (principal) | CPT/HCPCS: 93010 ==

== ENCOUNTER → 2024-03-23 00:38 | Outpatient (BNV) | payer MEDICARE, SELFPAY | PROVIDERS: Admitting Provider Internal Medicine; Emergency Provider Internal Medicine; Visit Provider Student in an Organized Health Care Education/Training Program | DX: A41.9 Sepsis, unspecified organism (principal); N17.9 Acute kidney failure, unspecified; N39.0 Urinary tract infection, site not specified; R53.81 Other malaise | CPT/HCPCS: 99232; 99239 ==